=== PATIENT | female | born 1955 | race Caucasian/White ===

== ENCOUNTER 2017-01-18 21:05 | Emergency (ER) | payer MEDICARE, OTHER ==
[~2017-01-18] VITALS: Ht 172.7 cm; Wt 84.3 kg
[~2017-01-18 21:05] MED LIST: LURA40 PO; SULF-154 PO
[2017-01-18 21:13] VITALS: BP 126/57; PULSE 102; RESP 16; TEMP 99.6; O2SAT 97
[2017-01-18 21:34] VITALS: TEMP 99.4
[2017-01-18 21:49] LABS: BLOOD, URINE SMALL (NEG); GLUCOSE,URINE NEG (NEG); KETONE, URINE NEG (NEG); NITRITE,URINE NEG (NEG)
[2017-01-18 22:07] LABS: BACTERIA, URINE RARE /hpf; METHOD OF COLLECTION CLEAN CATCH; URINE COLOR YELLOW (YELLW/STRAW); WBC, URINE 0-2 /hpf (0-5)
[2017-01-18 22:08] LABS: COMMENT (UR) CULT NOT INDICATED; CULTURE IF INDICATED CULT NOT INDICATED
[2017-01-18] MEDS ORDERED: PHEN0.4T PO (22:27)
[2017-01-18] MEDS ORDERED: MACR100C2 PO (22:27)
--- NOTE | 2017-01-18 22:28 | PD ---
HPI Chief Complaint: Complaint Time Seen by Provider: 21:40 Travel History International Travel<30 days: No Contact w/Intl Traveler<30days: No Traveled to known affect area: No History of Present Illness HPI 61-year-old female with chief complaint of dysuria and frequency 1 day. She denies fever, chills, nausea, vomiting, flank pain. Symptom severity is mild. No aggravating or alleviating factors. She reports similar symptoms previously. PFSH Past Medical History Bipolar Disorder: Yes Anxiety: Yes Depression: Yes Diminished Hearing: No Psychiatric: Yes Immunizations Current: Yes Tetanus Vaccination: > 5 Years Influenza Vaccination: No ?: Not LMP: age 43 Menopausal: Yes : 1 Para: 1 Past Surgical History Surgical History: No Previous Surgery Social History Alcohol Use: No Tobacco Use: No Substance Use: No Allergies-Medications (Allergen,Severity, Reaction): Coded Allergies: Penicillin (Verified Allergy, Unknown, 01/18/17) Septra (Verified Allergy, Unknown, 01/18/17) does not remember Reported Meds & Prescriptions Reported Meds & Active Scripts Active No Active Prescriptions or Reported Medications Review of Systems Except as stated in HPI: all other systems reviewed are Neg General / Constitutional: No: Fever Eyes: No: Visual changes HENT: No: Headaches Cardiovascular: No: Chest Pain or Discomfort Respiratory: No: Shortness of Breath Gastrointestinal: No: Abdominal Pain Genitourinary: Positive: Frequency, Dysuria Physical Exam Narrative GENERAL: Well-nourished, well-developed patient. SKIN: Focused skin assessment warm/dry. HEAD: Normocephalic. EYES: No scleral icterus. No injection or drainage. NECK: Supple, trachea midline. No JVD or lymphadenopathy. CARDIOVASCULAR: Regular rate and rhythm without murmurs, gallops, or rubs. RESPIRATORY: Breath sounds equal bilaterally. No accessory muscle use. GASTROINTESTINAL: Abdomen soft, non-tender, nondistended. MUSCULOSKELETAL: No cyanosis, or edema. BACK: Nontender without obvious deformity. No CVA tenderness. Data Data Last Documented VS Vital Signs Date Time Temp Pulse Resp B/P Pulse Ox O2 Delivery O2 Flow Rate FiO2 01/18/17 21:34 99.4 01/18/17 21:13 102 16 126/57 97 Orders Urinalysis - C+S If Indicated (01/18/17 21:27) Labs Laboratory Tests Test 01/18/17 21:40 Urine Collection Type CLEAN CATCH Urine Color YELLOW Urine Turbidity CLEAR Urine pH 6.0 Urine Specific Wright 1.011 Urine Protein NEG mg/dL Urine Glucose (UA) NEG mg/dL Urine Ketones NEG mg/dL Urine Occult Blood SMALL Urine Nitrite NEG Urine Bilirubin NEG Urine Leukocyte Esterase TRACE Urine WBC 0-2 /hpf Urine Bacteria RARE /hpf Microscopic Urinalysis Comment CULT NOT INDICATED Urine Collection Time 2140 MDM Medical Decision Making Medical Screen Exam Complete: Yes Emergency Medical Condition: Yes Differential Diagnosis UTI, polynephritis, Vaginitis Narrative Course 61-year-old female since emergency department for evaluation of frequency and dysuria times one day. Patient reports only simple previous UTI. She denies fever or chills Patient is reassuring. Her UA is positive for infection she' ll be treated for UTI. Diagnosis Primary Impression: UTI (urinary tract infection) Qualified Code: N30.00 - Acute cystitis without hematuria Referrals: Primary Care Physician Additional Instructions: Take the antibiotics as prescribed. Stable hydrated by drinking plenty of fluids. Follow-up with her primary care doctor. Return to emergency department if he developed new or worsening symptoms. Scripts Phenazopyridine (Pyridium)100 Mg [id number] Mg PO Q8H PRN (DYSURIA) #6 TAB Ref 0 Prov:Corie Ballard 01/18/17 Nitrofurantoin Monohydrate Macrocrystals (Macrobid)100 Mg [id number] Mg PO BID #10 CAP Ref 0 Prov:Corie Ballard 01/18/17 Disposition: 01 DISCHARGE HOME Condition: Stable Corie Ballard Jan 18, 2017 22:28
== END 2017-01-18 22:35 | disposition home or self-care (01) ==
LOC: PHEFT 21:05
DX: N30.00 Acute cystitis without hematuria (principal)
CPT/HCPCS: 81001; 99284